=== PATIENT | female | born 1980 | race American Indian/Alaskan Native ===

== ENCOUNTER 2025-03-09 08:48 | Emergency (ER) | payer OTHER, MEDICAID, SELFPAY ==
[2025-03-09] VITALS (9 sets, daily range): BP systolic 114–140; BP diastolic 73–86; PULSE 100–111; RESP 18–25; TEMP 36.9–37.9; O2SAT 93–98; BMI 36.6
--- NOTE | 2025-03-09 09:18 | PD.EDLOWEX ---
Lower Extremity Injury RME/HPI General Chief Complaint: General Adult/Misc Complain Stated Complaint: ALL JOINTS HURT X 2 WKS Time Seen by Provider: 03/09/25 09:05 Source: patient Arrival date/time: 03/09/25 08:48 45-year-old female with a history of hypertension, type 2 diabetes presents to the emergency room with a chief complaint of joint pain x 2 weeks. Patient states her right foot, right knee left knee and left elbow are all hurting her. Patient denies any trauma. Mode of arrival: ambulatory Limitations: no limitations Related Data Home Medications ?Medication ?Instructions ?Recorded ?Confirmed amlodipine 2.5 mg tablet 2.5 mg PO QDAY 02/14/22 02/27/22 metformin 500 mg tablet 500 mg PO BIDWM 02/14/22 02/27/22 apixaban 2.5 mg tablet (Eliquis) 2.5 mg PO BID 02/27/22 02/27/22 hydrocodone 7.5 mg-acetaminophen 1 tab PO Q6HR PRN Pain 02/27/22 02/27/22 325 mg tablet Previous Rx's ?Medication ?Instructions ?Recorded pantoprazole 40 mg tablet,delayed 40 mg PO QDAY #20 tabs 09/01/21 release Allergies Allergy/AdvReac Type Severity Reaction Status Date / Time No Known Allergies Allergy Verified 03/09/25 08:51 ED Exam General Limitations: Present no limitations Course Orders Category Date Time Status CBC Stat Lab 03/09/25 09:17 Ordered CK [Creatine Kinase] Stat Lab 03/09/25 09:17 Ordered CMP [Comprehensive Metabolic Panel] Stat Lab 03/09/25 09:17 Ordered Uric Acid Stat Lab 03/09/25 09:17 Ordered Ketorolac Inj [Toradol Inj] Med 03/09/25 09:17 Discontinued 30 mg IM X1 ONE Vital Signs Vital signs: Vital Signs Temperature 99.5 F 03/09/25 09:17 Pulse Rate 100 03/09/25 09:17 Respiratory Rate 18 03/09/25 09:17 Blood Pressure 129/83 03/09/25 09:17 Pulse Oximetry (%) 98 03/09/25 09:17 Oxygen Delivery Method Room Air 03/09/25 09:17 Extremity Injury, Lower Medications / Prescriptions Medication administrations:: Medication Administration History Discontinued Medications Ketorolac Tromethamine (Ketorolac Inj 60 Mg/2 Ml Vial) 30 mg IM X1 ONE Stop: 03/09/25 09:18 Discharge Plan Prescriptions/Referrals Prescriptions/Med Rec: No Action pantoprazole 40 mg Tablet,Delayed Release (Dr/Ec) 40 mg PO QDAY Qty: 20 0RF metformin 500 mg tablet 500 mg PO BIDWM Patient Comments: TAKE 1 TABLET BY MOUTH TWICE A DAY WITH MORNING AND EVENING MEALS amlodipine 2.5 mg tablet 2.5 mg PO QDAY Patient Comments: TAKE 1 TABLET BY MOUTH EVERY DAY hydrocodone-acetaminophen 7.5-325 mg tablet 1 tab PO Q6HR PRN (Reason: Pain) Patient Comments: TAKE 1 TABLET BY MOUTH EVERY 6 HOURS FOR 5 DAYS Eliquis 2.5 mg tablet 2.5 mg PO BID Patient Comments: TAKE 1 TABLET BY MOUTH TWICE DAILY FOR 21 DAYS Patient/Caregiver Discharge Instructions Print Language: Nigerian
[2025-03-09] MEDS: KETOROLAC INJ 60 MG/2 ML VIAL 30 MG IM (09:30)
[2025-03-09 10:18] LABS: Basophils # (Auto) 0.1 Thou/mm3 (0.0-0.2); Basophils % (Auto) 1 % (0-2.5); Eosinophils # (Auto) 0.1 Thou/mm3 (0.0-0.5); Eosinophils % (Auto) 0 % (0-10); Hematocrit 39.5 % (36.0-46.0); Hemoglobin 12.8 g/dL (12.0-16.0); Immature Granulocytes Auto 0.16 Thou/mm3 (0.00-0.00); Lymphocytes # (Auto) 1.2 Thou/mm3 (1.0-4.8); Lymphocytes % (Auto) 4 % (10-50); Mean Corpuscular HGB Conc 32.4 g/dl (31.0-37.0); Mean Corpuscular Hemoglobin 30.3 pg (25.0-35.0); Mean Corpuscular Volume 94 fL (80-100); Monocytes # (Auto) 0.9 Thou/mm3 (0.0-0.8); Monocytes % (Auto) 3 % (0-12); Neutrophils # (Auto) 24.8 Thou/mm3 (1.8-7.7); Neutrophils % (Auto) 91 % (37-80); Nucleated Red Blood Cell # 0.00 Thou/mm3 (0.00-0.00); Nucleated Red Blood Cell % 0 /100 WBC (0); Platelet Count 344 Thou/mm3 (140-440); RDW Standard Deviation 47.1 fL (36.4-46.3); Red Blood Count 4.22 Miln/mm3 (4.00-5.20); White Blood Count 27.2 Thou/mm3 (3.6-11.0)
[2025-03-09 10:33] LABS: Alanine Aminotransferase 27 U/L (10-49); Albumin, Serum 4.0 gm/dL (3.5-5.0); Albumin/Globulin Ratio 1.5 (1.2-2.2); Alkaline Phosphatase 178 U/L (46-116); Anion Gap 13 (7-16); Aspartate Amino Transferase 22 U/L (0-34); BUN/Creatinine Ratio 10 Ratio (12-20); Bilirubin,Total 0.5 mg/dL (0.3-1.2); Blood Urea Nitrogen 14 mg/dL (9-23); Calcium 9.1 mg/dL (8.3-10.6); Calcium (Corrected) 9.1 mg/dL (8.5-10.1); Carbon Dioxide 18.3 mMol/L (20.0-31.0); Chloride 101 mMol/L (98-107); Creatine Kinase 124 U/L (34-171); Creatinine (Component) 1.4 mg/dL (0.6-1.3); Estimated Creatinine Clearance 52.0 mL/min (>60); Globulin 2.7 gm/dL (2.3-3.5); Glucose 315 mg/dL (74-106); Osmolality,Calculated 277 (275-295); Potassium 3.9 mMol/L (3.4-5.1); Sodium 132 mMol/L (136-145); Total Protein 6.7 gm/dL (5.7-8.2); eGFR 47 See Note
[2025-03-09 10:42] LABS: Uric Acid 5.8 mg/dL (3.1-7.8)
[2025-03-09 11:08] LABS: Lactate (Lactic Acid) 1.9 mMol/L (0.4-2.0)
--- NOTE | 2025-03-09 11:20 | PD.EDRME ---
Rapid Medical Screening Exam E Arrival date/time: 03/09/25 08:48 45-year-old female with a history of hypertension, type 2 diabetes presents to the emergency room with a chief complaint of joint pain x 2 weeks. Patient states her right foot, right knee left knee and left elbow are all hurting her. Patient has a knee spacer in her left knee. Patient denies any trauma. I have greeted and performed a focused initial assessment of this patient. A comprehensive ED assessment and evaluation of the patient, analysis of all test results, and completion of the medical decision making process will be conducted by additional ED providers. Chief Complaint: General Adult/Misc Complain Time Seen by Provider: 03/09/25 09:05 Vital signs: Vital Signs Temperature 99.5 F 03/09/25 09:17 Pulse Rate 100 03/09/25 09:17 Respiratory Rate 18 03/09/25 09:17 Blood Pressure 129/83 03/09/25 09:17 Pulse Oximetry (%) 98 03/09/25 09:17 Oxygen Delivery Method Room Air 03/09/25 09:17 Vital signs reviewed by provider: Yes
[2025-03-09] MEDS: SODIUM CHLORIDE 0.9% 1000 ML 1,000 ML 999 ML IV (11:31)
[2025-03-09] MEDS: ceFAZolin/D5W 1 GM IVPB 1 GM/50 ML BAG IV (11:32)
[2025-03-09 11:40] LABS: C-Reactive Protein 4.8 mg/dL (0.0-0.9); Procalcitonin 0.22 ng/ml (0.0-0.49)
[2025-03-09 11:55] LABS: Sed Rate (ESR) 55 mm/hr (0-20)
[2025-03-09] MEDS: ONDANSETRON INJ 2 MG/ML INJ 2 ML 4 MG IVP ×2 (12:04→17:05)
[2025-03-09] MEDS: MORPHINE SULF INJ 10 MG/ML VIAL 4 MG IVP ×2 (12:04→17:05)
--- NOTE | 2025-03-09 12:07 | XR_ITS ---
Examination: Knee, right , 3 views Technique: Knee AP, lateral, oblique 3 views Date and time of exam: May 09, 2025 1219 hours INDICATIONS: Joint pain 2 weeks. FINDINGS: Severe osteopenia. Right knee arthroplasty. The patient's prosthetic tibial plateau component has again been removed No fracture IMPRESSION: Stable alignment compared with March 12, 2022 No fracture
--- NOTE | 2025-03-09 12:08 | XR_ITS ---
Examination: Duplex scan of the lower extremity, unilateral right complete Date and time of exam: March 09, 2025 1316 hours INDICATIONS: Right leg swelling and pain beginning today Technique: Duplex scan of the extremity veins using B-mode/grayscale imaging and Doppler spectral analysis and color flow Attention is directed to internal echogenicity, compression and augmentation involving these veins, color flow assessment, spectral analysis Findings: Major deep venous structures in the extremity demonstrate normal course and caliber. There is no evidence of deep vein thrombosis. Normal color flow and spectral analysis Impression: Negative for DVT..
--- NOTE | 2025-03-09 12:29 | EDNOTE_ITS ---
ED Fever RME/HPI General Chief Complaint: General Adult/Misc Complain Stated Complaint: ALL JOINTS HURT X 2 WKS Time Seen by Provider: 03/09/25 09:05 Arrival date/time: 03/09/25 08:48 Limitations: no limitations RME / HPI RME / HPI Narrative: 03/09/25 08:48 45-year-old female with a history of hypertension, type 2 diabetes presents to the emergency room with a chief complaint of mylagias and right knee pain/swe lling that started at 23:30 last night. Rightknee was surgically replaced by Dr. Marc from [facility] at [place], [place] on October 2020. She states she has had infections in that knee since. Related Data Home Medications ?Medication ?Instructions ?Recorded ?Confirmed amlodipine 2.5 mg tablet 2.5 mg PO QDAY 02/14/2202/13 metformin 500 mg tablet 500 mg PO BIDWM 02/14/22 apixaban 2.5 mg tablet (Eliquis) 2.5 mg PO BID 2 02/27/22 hydrocodone 7.5 mg-acetaminophen 1 tab PO Q6HR PRN Fatmata n 02/27/22 02/27/22 325 mg tablet Previous Rx's ?Medication ?Instructions ?Recorded pantoprazole 40 mg tablet,delayed 40 mg PO QDAY #20 ta bs 09/01/21 release Allergies Allergy/AdvReac Type Severity Reaction Status Date / Time No Known Allergies Allergy Verified 03/09/25 08:51 Physical Exam General Limitations: no limitations General appearance: alert and in distress Head Head exam: atraumatic Eye Eye exam: Present normal appearance, PERRL and EOMI ENT ENT exam: Present normal exam, normal oropharynx and mucous membranes moist Neck Neck exam: Present normal inspection, full ROM and trachea midline Chest Chest inspection: Present normal inspection and symmetric chest wall rise Respiratory Respiratory exam: Present normal lung sounds bilaterally Cardiovascular Cardiovascular exam: Present regular rate, normal rhythm and tachycardia Abdominal Exam Abdominal exam: Present soft and normal bowel sounds Extremities Exam Extremities exam: Present tenderness, joint swelling and other (The right knee is diffusely erythematous, warm to touch, and mildly edematous. There is no blotting of the knee. There is mild crepitus present. Patient has pain with passive range of motion. She is guarding her knee.) Back Exam Back exam: Present normal inspection and full ROM Neurological Exam Neurological exam: Present alert and oriented X3 Psychiatric Psychiatric exam: Present normal affect Skin Skin exam: Present warm and other (Right knee is erythematous and warm, primarily along the anterior surface. No open wounds or fluctuance.) ED Exam General Limitations: Present no limitations General appearance: Present alert and in distress Head Head exam: Present atraumatic Eye Eye exam: Present normal appearance, PERRL and EOMI ENT ENT exam: Present normal exam, normal oropharynx and mucous membranes moist Neck Neck exam: Present normal inspection, full ROM and trachea midline Chest Chest inspection: Present normal inspection and symmetric chest wall rise Respiratory Respiratory exam: Present normal lung sounds bilaterally Cardiovascular Cardiovascular exam: Present regular rate, normal rhythm and tachycardia Abdominal Exam Abdominal exam: Present soft and normal bowel sounds Extremities Exam Extremities exam: Present tenderness, joint swelling and other (The right knee is diffusely erythematous, warm to touch, and mildly edematous. There is no blotting of the knee. There is mild crepitus present. Patient has pain with pa ssive range of motion. She is guarding her knee.) Back Exam Back exam: Present normal inspection and full ROM Neurological Exam Neurological exam: Present alert and oriented X3 Psychiatric Psychiatric exam: Present normal affect Skin Skin exam: Present warm and other (Right knee is erythematous and warm, primarily along the anterior surface. No open wounds or fluctuance.) Course Quality Measures none Orders Category Date Time Status Bedside COVID-19 Antigen Test NOW Care 03/09/25 12:12 Active Bedside Influenza A&B Antigen Test NOW Care 03/09/25 12:13 Completed Consult to Orthopedic Stat Cons 03/09/25 14:03 Ordered Referral - Shrink Pit Operator Stat Cons 03/09/25 12:53 Active Referral - Shrink Pit Operator Stat Cons 03/09/25 14:40 Active Transfer to another facility [Transfer/Discharge] Stat Discharge 03/09/25 12:36 Active US venous doppler LE RT Stat Exams 03/09/25 12:08 Completed XR knee RT 3V Stat Exams 03/09/25 12:07 Completed Blood Culture (Lab) Stat Lab 03/09/25 10:45 Received Body Fld Culture & Gram Stain Stat Lab 03/09/25 23:00 Ordered CBC Stat Lab 03/09/25 09:31 Completed CK [Creatine Kinase] Stat Lab 03/09/25 09:31 Completed CMP [Comprehensive Metabolic Panel] Stat Lab 03/09/25 09:31 Completed CRP [C-Reactive Protein] Stat Lab 03/09/25 10:48 Completed Cell Count w Diff, CSF Stat Lab 03/09/25 23:00 Ordered Drug Screen,Urine Stat Lab 03/09/25 17:00 Completed ESR [Sed Rate (ESR)] Stat Lab 03/09/25 10:48 Completed Lactate (Lactic Acid) Stat Lab 03/09/25 10:48 Completed Procalcitonin Stat Lab 03/09/25 10:48 Completed Synovial Fluid, Crystals* Stat Lab 03/09/25 23:00 Ordered UA [Urinalysis] Stat Lab 03/09/25 17:00 Completed Uric Acid Stat Lab 03/09/25 09:31 Completed Urine Culture Stat Lab 03/09/25 16:52 Received Acetaminophen Tab [Tylenol ES Tab] Med 03/09/25 12:09 Discontinued 1,000 mg PO X1 ONE Colchicine Med 03/09/25 09:20 Discontinued 1.2 mg PO X1 ONE Ketorolac Inj [Toradol Inj] Med 03/09/25 09:17 Discontinued 30 mg IM X1 ONE Lidocaine 1% 20 ml [Xylocaine 1% 20 ML] Med 03/09/25 13:00 Discontinued 20 ml INFL X1 ONE Morphine Inj Med 03/09/25 22:37 Active 2 mg IVP Q1H PRN Morphine Inj Med 03/09/25 11:51 Discontinued 4 mg IVP X1 ONE Morphine Inj Med 03/09/25 16:52 Discontinued 4 mg IVP X1 ONE Ondansetron Inj [Zofran Inj] Med 03/09/25 11:51 Discontinued 4 mg IVP X1 ONE Ondansetron Inj [Zofran Inj] Med 03/09/25 16:52 Discontinued 4 mg IVP X1 ONE Ringers Lactated 500 ml [Lactated Ringers] 500 ml Med 03/09/25 12:03 Discontinued IV 750 mls/hr Sodium Chloride 0.9% 1000 ml [Ns] 1,000 ml Med 03/09/25 10:34 Discontinued IV 999 mls/hr Sodium Chloride 0.9% 1000 ml [Ns] 1,000 ml Med 03/09/25 12:03 Discontinued IV 999 mls/hr Sodium Chloride 0.9% 1000 ml [Ns] 2,722 ml Med 03/09/25 12:03 Discontinued IV 2,722 mls/hr Vancomycin Inj 1,000 mg Med 03/09/25 12:04 Discontinued Sodium Chloride 0.9% 250 ml [Ns] 250 ml IV X1 ceFAZolin/D5W 1 GM IVPB [Ancef Ivpb] Med 03/09/25 22:00 Active 1 gm in 50 ml IV Q8HR ceFAZolin/D5W 1 GM IVPB [Ancef Ivpb] Med 03/09/25 10:35 Discontinued 1 gm in 50 ml IV X1 Vital Signs Vital signs: Vital Signs Temperature 99.5 F 03/09/25 09:17 Pulse Rate 100 03/09/25 09:17 Respiratory Rate 18 03/09/25 09:17 Blood Pressure 129/83 03/09/25 09:17 Pulse Oximetry (%) 98 03/09/25 09:17 Oxygen Delivery Method Room Air 03/09/25 09:17 Fever MDM Narrative MDM Narrative:: 03/09/25 08:48 45-year-old female with a history of hypertension, type 2 diabetes presents to the emergency room with a chief complaint of mylagias and right knee pain/swelling that started at 23:30 last night. Right knee was surgically replaced by Dr. Marc from [facility] at [place], [place] on October 2020. She states she has had infections in that knee since. Review of past notes reveal that patient has been in our ER for this in the past. She has left AGAINST MEDICAL ADVICE due to challenges in transferring her to an appropriate facility. She has had her septic knee surgical. Also treated at [facility] and [facility] in [place], [place]. She has had prior PICC lines and was treated with Ancef this last occurred in 2021. [facility] [place], [place] and [facility] were unable to except the patient for transfer. Case discussed with nightshift attending ER physician, Dr. Roblero who accepts the patient at shift change. Patient data External records reviewed:: [facility] previous records Clinical information provided by:: patient Social determinants that could affect healthcare access:: substance use Patient has the following chronic illnesses:: n/a How is presenting disease/condition affected by chronic disease/condition?: no chronic disease Evaluation data The following diagnostics were reviewed and interpreted by me:: lab results and radiology exam(s) Lab and/or radiology exams considered but not ordered:: N/A Interpretation Summary: Sepsis, septic joint, methamphetamine abuse Medications / Prescriptions Medications or Prescriptions considered but not ordered:: N/A Medication administrations:: Medication Administration History Cefazolin Sodium/Dextrose (Ancef Ivpb) 1 gm in 50 mls @ 100 mls/hr IV Q8HR PATTI Stop: 03/16/25 21:59 Morphine Sulfate (Morphine Sulf Inj 10 Mg/Ml Vial) 2 mg IVP Q1H PRN PRN Reason: PAIN Discontinued Medications Acetaminophen (Acetaminophen 500 Mg Tablet) 1,000 mg PO X1 ONE Stop: 03/09/25 12:10 Last Admin: 03/09/25 12:40 Dose: 1,000 mg Documented By: ARF Colchicine (Colchicine 0.6 Mg Tablet) 1.2 mg PO X1 ONE Stop: 03/09/25 09:21 Last Admin: 03/09/25 11:14 Dose: Not Given Documented By: ARF Non-Admin Reason: Discontinued Sodium Chloride (Ns) 1,000 mls @ 999 mls/hr IV .Q1H1M ONE Stop: 03/09/25 11:34 Last Infusion: 03/09/25 12:15 Dose: Infused Documented By: Admin: 03/09/25 11:31 Dose: 999 mls/hr Documented By: ARF Cefazolin Sodium/Dextrose (Ancef Ivpb) 1 gm in 50 mls @ 100 mls/hr IV X1 ONE Stop: 03/09/25 11:04 Last Infusion: 03/09/25 12:14 Dose: Infused Documented By: Admin: 03/09/25 11:32 Dose: 100 mls/hr Documented By: ARF Sodium Chloride (Ns) 2,722 mls @ 2,722 mls/hr 30 ml/kg infuse over 60 min (2722 ml) IV .Q1H ONE; Protocol Stop: 03/09/25 13:02 Last Infusion: 03/09/25 14:06 Dose: Infused Documented By: Admin: 03/09/25 12:43 Dose: 2,722 mls/hr Documented By: ARF Sodium Chloride (Ns) 1,000 mls @ 999 mls/hr IV .Q1H1M ONE Stop: 03/09/25 13:03 Last Admin: 03/09/25 12:46 Dose: Not Given Documented By: ARF Non-Admin Reason: Discontinued Lactated Ringer's (Lactated Ringers) 500 mls @ 750 mls/hr IV .Q40M ONE Stop: 03/09/25 12:42 Last Admin: 03/09/25 12:46 Dose: Not Given Documented By: ARF Non-Admin Reason: Discontinued Vancomycin HCl 1,000 mg/ (Sodium Chloride) 250 mls @ 150 mls/hr IV X1 ONE Stop: 03/09/25 13:43 Last Infusion: 03/09/25 14:07 Dose: Infused Documented By: Admin: 03/09/25 12:41 Dose: 150 mls/hr Documented By: ARF Ketorolac Tromethamine (Ketorolac Inj 60 Mg/2 Ml Vial) 30 mg IM X1 ONE Stop: 03/09/25 09:18 Last Admin: 03/09/25 09:30 Dose: 30 mg Documented By: CN Lidocaine HCl (Lidocaine Hcl 1% 20 Ml Vial) 20 ml INFL X1 ONE Stop: 03/09/25 13:01 Last Admin: 03/09/25 15:25 Dose: Not Given Documented By: ARF Non-Admin Reason: Discontinued Morphine Sulfate (Morphine Sulf Inj 10 Mg/Ml Vial) 4 mg IVP X1 ONE Stop: 03/09/25 11:52 Last Admin: 03/09/25 12:04 Dose: 4 mg Documented By: ARF Morphine Sulfate (Morphine Sulf Inj 10 Mg/Ml Vial) 4 mg IVP X1 ONE Stop: 03/09/25 16:53 Last Admin: 03/09/25 17:05 Dose: 4 mg Documented By: ARF Ondansetron HCl (Ondansetron Inj 2 Mg/Ml Inj 2 Ml) 4 mg IVP X1 ONE; Protocol Stop: 03/09/25 11:52 Last Admin: 03/09/25 12:04 Dose: 4 mg Documented By: ARF Ondansetron HCl (Ondansetron Inj 2 Mg/Ml Inj 2 Ml) 4 mg IVP X1 ONE; Protocol Stop: 03/09/25 16:53 Last Admin: 03/09/25 17:05 Dose: 4 mg Documented By: ARF see above Consultations Consultation(s) initiated? (list below): Yes Diagnosis Fever Differential Diagnosis: cellulitis, fever of unknown origin and sepsis Most likely diagnosis given after review of the tests above:: Septic knee Admission Indicated Admission indicated?: indicated Admission Request Was there a request for admission?: Yes Admission Attestation Admission request attestation: Discussed case with [] from Hospitalist service regarding admission. Discussed patients ED course, exam findings, labs, and radiology results. The Hospitalist [agrees,declines] to accept the patient for admission. Disposition Plan Disposition Plan: Transfer Discharge Plan Prescriptions/Referrals Prescriptions/Med Rec: No Action pantoprazole 40 mg Tablet,Delayed Release (Dr/Ec) 40 mg PO QDAY Qty: 20 0RF metformin 500 mg tablet 500 mg PO BIDWM Patient Comments: TAKE 1 TABLET BY MOUTH TWICE A DAY WITH MORNING AND EVENING MEALS amlodipine 2.5 mg tablet 2.5 mg PO QDAY Patient Comments: TAKE 1 TABLET BY MOUTH EVERY DAY hydrocodone-acetaminophen 7.5-325 mg tablet 1 tab PO Q6HR PRN (Reason: Pain) Patient Comments: TAKE 1 TABLET BY MOUTH EVERY 6 HOURS FOR 5 DAYS Eliquis 2.5 mg tablet 2.5 mg PO BID Patient Comments: TAKE 1 TABLET BY MOUTH TWICE DAILY FOR 21 DAYS Referrals: Enoc Armstrong PA-C [Primary Care Provider] - In 1 week Problem List Clinical Impression: Septic joint of right knee joint, Sepsis, Methamphetamine abuse Patient/Caregiver Discharge Instructions Print Language: Argentine
[2025-03-09] MEDS: ACETAMINOPHEN 500 MG TABLET 1000 MG PO (12:40)
[2025-03-09] MEDS: Vancomycin Inj 1,000 MG in SODIUM CHLORIDE 0.9% 250 ML 250 ML 150 MG IV (12:41)
[2025-03-09] MEDS: SODIUM CHLORIDE 0.9% 2722 ML IV (12:43)
--- NOTE | 2025-03-09 14:57 | PC.CC ---
Addendum entered by Debbie Cortez RN 03/09/25 19:27: 1856: Gwendolyn w/ [facility] called, spoke to Adrian. transfer packet w/ CD taken to ED records management manager Lydia. Hand off given Addendum entered by Debbie Cortez RN 03/09/25 17:53: 1746: Karlene called back and she stated, oncall ortho is unable to provide the service the pt requires and rec pt f/u with [facility]. 1737: Spoke to Greetl at [facility], she stated ortho is still reviewing the case. She will call back with a redetermination. 1721: received call from Karlene schroeder/ [facility], she stated her ortho oncall reviewed the case and pt does not seem systemically septic and can f/u with [facility] as an outpatient. Informed Adrian, he stated pt is septic. I called Courtney back to inform her that provider would like to proceed with ED to ED transfer. Courtney stated she will reach out her provider again. Addendum entered by Debbie Cortez RN 03/09/25 16:41: faxed lab results as requested from Karlene at [facility]. She is still waiting for response from billie clarke Addendum entered by Debbie Cortez RN 03/09/25 16:22: 1615: Called [facility]. no longer works at their facility. Addendum entered by Debbie Cortez RN 03/09/25 16:11: 1610: sent clinicals to [facility]. 1602: Karlene schroeder/ [facility] called back and stated Dr Marc is not oncall today and to call him at his office. I asked if the ortho MD clarke can review the case. She stated she will reach out. 1548: Jade schroeder/ [facility] called back, stated Dr. Marc does not work at [facility]. Billie clarke doesn't do revisions. Addendum entered by Debbie Cortez RN 03/09/25 15:36: 1518: spoke to Courtney at [facility], she stated she will wait for the clinicals, review, and call me back Addendum entered by Debbie Cortez RN 03/09/25 15:10: 1506: sent clinicals to [facility]. 1500: sent clinicals to [facility], transfer request initiated. Jade stated patient is in their system and in [facility] as well. She will wait for the clinicals, review and call me back. 1440 received new transfer request for ortho for [facility] since that is where she had it done. Addendum entered by Debbie Cortez RN 03/09/25 15:08: 1343: received call from Gillian CHRISTIE, Dr. Quinones will review and to hold transfer request for now. Original Note: 1300: received transfer request for ortho for septic knee. PA had not reached out to Dr. Quinones who is the ortho oncall. Asked the ED charge nurse Gillian to the PA reach out the Dr. Quinones.
[2025-03-09 17:31] LABS: Collection Type, Urine Clean Catch
[2025-03-09 17:50] LABS: Bilirubin,Urine Negative (Negative); Blood,Urine Trace (Negative); Clarity,Urine Clear (Clear/Hazy); Color,Urine Lt-Yellow (Lt Yel-Yel); Glucose, Urine 4+ (Negative); Ketones,Urine Negative (Negative); Leukocyte Esterase,Urine Negative (Negative); Nitrite,Urine Negative (Negative); PH,Urine 6.0 (5.0-7.0); Protein,Urine Negative (Neg - Trace); RBC,Urine 3 /hpf (0-3); Specific Gravity,Urine 1.015 (1.001-1.035); Squamous Epithelial Cell,Urine 2 /hpf (0-5); Urobilinogen,Urine Negative mg/dL (0.0-1.0); WBC,Urine < 1 /hpf (0-5)
[2025-03-09 17:55] LABS: Amphetamine/Methamp Scrn,U Positive (Negative); Barbiturate Screen,Urine Negative (Negative); Benzodiazepines Screen,Urine Negative (Negative); Benzoylecgonine Screen, Ur Negative (Negative); Fentanyl Screen,Urine Negative (Negative); Opiate Screen,Urine Positive (Negative); THC Screen,Urine Negative (Negative)
--- NOTE | 2025-03-09 20:39 | PC.NURSE ---
Varun hernandez suggested we try [facility], packet faxed over-will follow up.
--- NOTE | 2025-03-09 21:09 | PC.NURSE ---
[facility] spoke to Beverly regarding packet she states [place] is requesting only emergencies, she suggested Mathew or Katheryn. CAYDEN Gutierrez speaking with transfer center at this time.
--- NOTE | 2025-03-09 21:27 | PC.NURSE ---
Ericka have declined due to not being able to do revisions.
--- NOTE | 2025-03-09 23:00 | PD.EDADDENDU ---
Emergency Room Addendum Addendum Narrative: 2300: Care assumed from Adrian Coats PA-C. Past medical, surgical, social and family history reviewed. Vitals and home medications reviewed. Results and treatment plan discussed. I will assume the care of the patient at this time and will follow the patient, pending transfer. Please refer to the emergency department record for history and examination from initial visit. Patient evaluated now for the 3rd episode of septic arthritis having received empiric antibiotics on previous culture results. No signs of sepsis at this time. Will attempt to transfer patient for orthopedic evaluation. 0600: Care signed out to Dr. Nguyen (emergency physician). Past medical, surgical, social and family history reviewed. Vitals and home medications reviewed. Results and treatment plan discussed. They will assume the care of the patient at this time and will follow the patient, pending orthopedic transfer.
[2025-03-09] MEDS: MORPHINE SULF INJ 10 MG/ML VIAL 2 MG IVP (23:14)
[2025-03-10] MEDS: ceFAZolin/D5W 1 GM IVPB 1 GM/50 ML BAG IV ×3 (00:40→21:34)
[2025-03-10 03:03] VITALS: BP 122/72; PULSE 102; RESP 20; TEMP 37.3; O2SAT 95
[2025-03-10] MEDS: MORPHINE SULF INJ 10 MG/ML VIAL 2 MG IVP ×2 (04:42→08:45)
--- NOTE | 2025-03-10 07:29 | EDNOTE_ITS ---
Emergency Room Addendum <Cyn Urrutia - Last Filed: 03/10/25 18:01> Addendum Narrative: 0600: Care assumed from Dr. Azevedo, the previous shift emergency physician. Past medical, surgical, social and family history reviewed. Vitals and home medications reviewed. I will assume the care of the patient at this time, pending transfer for orthopedic services. Please refer to the emergency department record for history and examination from initial visit.?The following addendum documentation note is intended to reflect any pending information, findings, or radiology results not included in the patient?s initial chart. Patient is a 45-year-old female is in the emergency department concerns for right knee swelling and pain that started yesterday. Patient has a history of prior knee replacement that [facility] orthopedics. Complicated by prior joint infections. Prior providers evaluated patient ordered labs and x-ray of the knee. Also consulted orthopedic surgeon. Labs with evidence of leukocytosis 27.2, left shift of 91%. Hemoglobin is 12.8. Patient bicarb is 18.3, sodium 132 creatinine 1.4 at her baseline. Lactic acid normal. No significant transaminitis, CRP elevated. Urinalysis without evidence of infection however she is positive for opiates and methamphetamines. Lower extremity Doppler unremarkable. X-ray does not show evidence of fracture or dislocation. Multiple pathologies were contacted for transfer however given patient has infected hardware patient had been declined. Recommended that we transfer to a facility that has capabilities to do Ortho revision. On my assessment patient hemodynamically stable and not in distress. Right knee is swollen, warm, tender to palpation. Neurovascularly intact. Patient states that all of her surgeries have been performed formed at [facility]. States that her original knee replacement was in 2019 that in 2020 she says that some of the hardware was replaced and the spacer was placed instead. Has not had any other surgeries. Per transfer center, multiple attempts have been placed to try to locate patient's original orthopedic surgeon however unable to locate the surgeon. No longer works with [facility] nurse and Shyanne. Other facilities are requesting orthopedic surgeons with higher level capabilities. 0820: I spoke with transfer center at [place], will see if facility has capacity. 12:04p discussed case with Dr. Henderson at [facility], will discuss with the team. 1600: Had a long discussion with Dr. Henderson at [facility]. Recommended that we contact [facility] again adding the procedure she needs is not complex. The patient requires an I&D, washout, and antibiotic spacer. Since [facility] performed the initial surgery, it is advised to follow up with them. It was also noted that if the patient were to go to [facility], she would likely require two or more procedures. Given her limited access to transportation, receiving care closer to home would be in her best interest. 1800: Patient signed out to Dr. Azevedo pending contact with [facility] and transfer. <Jade Nguyen MD - Last Filed: 04/02/25 16:56> Addendum Narrative: 0600: Care assumed from Dr. Azevedo, the previous shift emergency physician. Past medical, surgical, social and family history reviewed. Vitals and home medications reviewed. I will assume the care of the patient at this time, pending transfer for orthopedic services. Please refer to the emergency department record for history and examination from initial visit.?The following addendum documentation note is intended to reflect any pending information, findings, or radiology results not included in the patient?s initial chart. Patient is a 45-year-old female is in the emergency department concerns for right knee swelling and pain that started yesterday. Patient has a history of prior knee replacement that [facility] orthopedics. Complicated by prior joint infections. Prior providers evaluated patient ordered labs and x-ray of the knee. Also consulted orthopedic surgeon. Labs with evidence of leukocytosis 27.2, left shift of 91%. Hemoglobin is 12.8. Patient bicarb is 18.3, sodium 132 creatinine 1.4 at her baseline. Lactic acid normal. No significant transaminitis, CRP elevated. Urinalysis without evidence of infection however she is positive for opiates and methamphetamines. Lower extremity Doppler unremarkable. X-ray does not show evidence of fracture or dislocation. Multiple pathologies were contacted for transfer however given patient has infected hardware patient had been declined. Recommended that we transfer to a facility that has capabilities to do Ortho revision. On my assessment patient hemodynamically stable and not in distress. Right knee is swollen, warm, tender to palpation. Neurovascularly intact. Patient states that all of her surgeries have been performed formed at [facility]. States that her original knee replacement was in 2020 that in 2020 she says that some of the hardware was replaced and the spacer was placed instead. Has not had any other surgeries. Per transfer center, multiple attempts have been placed to try to locate patient's original orthopedic surgeon however unable to locate the surgeon. No longer works with [facility] nurse and Shyanne. Other facilities are requesting orthopedic surgeons with higher level capabilities. 0820: I spoke with transfer center at [place], will see if facility has capacity. 12:04p discussed case with Dr. Henderson at [facility], will discuss with the team. 1600: Had a long discussion with Dr. Henderson at [facility]. Recommended that we contact [facility] again adding the procedure she needs is not complex. The patient requires an I&D, washout, and antibiotic spacer. Since [facility] performed the initial surgery, it is advised to follow up with them. It was also noted that if the patient were to go to [facility], she would likely require two or more procedures. Given her limited access to transportation, receiving care closer to home would be in her best interest per [facility]. 1800: Patient signed out to Dr. Azevedo pending contact with [facility] and transfer. Critical Care Time <Cyndinorah Urrutia - Last Filed: 03/10/25 18:01> Critical Care Time Critical Care Time: Yes Total Critical Care Time (min.): 120 Attestation: The high probability of sudden, clinically significant deterioration in the patient's condition required the highest level of my preparedness to intervene urgently. The services I provided to this patient were to treat and/or prevent clinically significant deterioration. Services included the following: chart data review, reviewing nursing notes and/or old charts, documentation time, telecommunications consultant collaboration regarding findings and treatment options, medication orders and management, direct patient care, vital sign assessments and ordering, interpreting and reviewing diagnostic studies and lab tests. Aggregate critical care time includes only time during which I was engaged in work directly related to the patient's care, as described above, whether at bedside or elsewhere in the Emergency Department. It did not include time spent performing other reported procedures or the services of residents, students, nurses or physician assistants.
--- NOTE | 2025-03-10 08:08 | PC.CC ---
Addendum entered by Debbie Cortez RN 03/10/25 16:21: 1616: spoke to Dr. Nguyen, provided the information below. Directed to keep searching. 1615: [facility]ence w/ [facility] TC stated Dr. Houser declined patient and recommends local outpt f/u. Addendum entered by Debbie Cortez RN 03/10/25 12:08: [facility] and will call back with a determination Addendum entered by Debbie Cortez RN 03/10/25 12:01: peer to peer between Dr Nguyen and Dr Houser w/ [facility] Addendum entered by Debbie Cortez RN 03/10/25 09:43: transfer request initiated with [facility] TC. Eason to send Lola link Addendum entered by Debbie Cortez RN 03/10/25 09:10: clinicals sent to [facility] Addendum entered by Debbie Cortez RN 03/10/25 09:08: angel called back. pt declined at this time d/t ortho capacity. Original Note: clinicals sent to [facility]. transfer request initiated with Angel in the TC
[2025-03-10 08:13] VITALS: BP 147/101; PULSE 96; RESP 18; TEMP 37; O2SAT 95
--- NOTE | 2025-03-10 10:22 | XR_ITS ---
Examination: CT right knee with intravenous contrast, 2-D sagittal reconstructions. 2-D coronal reconstructions. 3-D reconstructions. Date and time of exam: March 10, 2025, 1439 hrs. Indications: Right knee swelling and pain beginning today CTDI: vol (mGy):9.27 DLP: (mGycm):252 Technique: Multiple 1.25 mm axial sections of the right knee post intravenous administration 30 cc Isovue-300 have been obtained. 2-D sagittal and coronal reconstructions have been obtained. 3-D reconstructions have been obtained. Low dose protocols were performed. One or more of the following dose reduction techniques were used; automated exposure control, adjustment of the mA and/or KV according to patient size, use of iterative reconstruction technique. Findings: Distal femur intact Severe osteopenia Total right knee arthroplasty with adequate alignment No fracture Complex significant knee effusion No anthony cortical bone destruction No soft tissue abscess Impression: Right knee arthroplasty with satisfactory alignment Complex significant knee effusion, consider fluoroscopically guided aspiration of this effusion to exclude septic joint
[2025-03-10] MEDS: PIPER/TAZO INJ 4.5 GM in SODIUM CHLORIDE 0.9% (POP) 100 ML IV (11:35)
[2025-03-10] MEDS: ACETAMINOPHEN 500 MG TABLET 1000 MG PO (12:28)
[2025-03-10 14:00] VITALS: BP 124/85; PULSE 98; RESP 18; TEMP 36.8; O2SAT 94
[2025-03-10] MEDS: VANCOMYCIN/D5W 1,250 MG IVPB 250 ML 120 MG IV (14:01)
--- NOTE | 2025-03-10 14:30 | PC.NURSE ---
PT TAKEN TO CT.
--- NOTE | 2025-03-10 18:20 | PD.EDADDENDU ---
Emergency Room Addendum Addendum Narrative: 1800: Care assumed from Dr. Nguyen, the previous shift emergency physician. Past medical, surgical, social and family history reviewed. Vitals and home medications reviewed. Results and treatment plan discussed. I will assume the care of the patient at this time and will follow the patient, pending transfer. Please refer to the emergency department record for history and examination from initial visit. Patient with evidence of septic arthritis awaiting transfer, rejected by [facility] earlier today, requiring intermittent doses on narcotic analgesics and [id number] antibiotics. Will require further effort to transfer for definitive care. 0600: Care signed out to Dr. Nguyen (emergency physician). Past medical, surgical, social and family history reviewed. Vitals and home medications reviewed. Results and treatment plan discussed. They will assume the care of the patient at this time and will follow the patient, pending transfer.
[2025-03-10 19:40] VITALS: BP 136/93; PULSE 97; RESP 19; TEMP 37.2; O2SAT 94
--- NOTE | 2025-03-10 19:50 | PC.NURSE ---
c/o pain and wanting food, iv removed from R ac-redness with swelling, vancomycin infusing leaking, infused remainder to left forearm iv
--- NOTE | 2025-03-10 20:01 | PC.NURSE ---
Notified Dr. Lucie Torres- new order for morpine 4mg IV push times one TORB, and okay to eat
[2025-03-10] MEDS: MORPHINE SULF INJ 10 MG/ML VIAL 4 MG IVP (21:31)
[2025-03-10 23:00] VITALS: BP 120/74; PULSE 111; RESP 19; TEMP 37.2; O2SAT 94
[2025-03-11] VITALS (15 sets, daily range): BP systolic 114–165; BP diastolic 63–112; PULSE 87–112; RESP 16–24; TEMP 36.9–37.6; O2SAT 94–96
--- NOTE | 2025-03-11 | XR_ITS ---
Exam: Fluoroscopic guided right knee aspiration. INDICATION: Right knee joint effusion seen on CT scan earlier today. Fluoroscopy time: 0.6 minutes Dose: 2.2 mGy PROCEDURE: After discussion of risks and benefits informed consent was obtained. Patient brought to the angiography suite and placed supine on the exam table. Area overlying the right knee joint was cleaned and draped in normal sterile surgical fashion. 15 cc 1% lidocaine was used for local anesthesia. Using fluoroscopic guidance a 21-gauge needle was sequentially advanced through the right knee joint from a lateral approach. Approximately 10 cc of cloudy yellow fluid was aspirated. Flow ceased through the needle. The needle was withdrawn. Hemostasis was achieved. The access site was covered with sterile dressing were no immediate complications. IMPRESSION: Successful fluoroscopic guided right knee joint aspiration as above. 10 cc cloudy yellow fluid obtained and sent to lab for analysis.
--- NOTE | 2025-03-11 04:38 | PC.NURSE ---
Addendum entered by Patricia Watson RN 03/11/25 05:12: correction indigestion vs indegestion Original Note: Pt c/o pain to affected extremity 04/24 and indegestion-notified Dr. Henderson-new order for morphine IVP 4mg times 1 and maalox-see mar
[2025-03-11] MEDS: MG HYD/AL HYD/SIME (Maalox Reg) SUSP 30 ML UDC PO (04:46)
[2025-03-11] MEDS: MORPHINE SULF INJ 10 MG/ML VIAL 4 MG IVP ×3 (04:46→16:47)
--- NOTE | 2025-03-11 05:00 | PC.NURSE ---
Addendum entered by Patricia Watson RN 03/11/25 05:12: pt denies any pain or discomfort to right ac Original Note: right ac area with blanchable redness and slight swelling
[2025-03-11] MEDS: ceFAZolin/D5W 1 GM IVPB 1 GM/50 ML BAG IV ×3 (05:30→22:06)
[2025-03-11 05:48] LABS: Basophils # (Auto) 0.1 Thou/mm3 (0.0-0.2); Basophils % (Auto) 0 % (0-2.5); Eosinophils # (Auto) 0.1 Thou/mm3 (0.0-0.5); Eosinophils % (Auto) 1 % (0-10); Hematocrit 36.5 % (36.0-46.0); Hemoglobin 12.0 g/dL (12.0-16.0); Immature Granulocytes Auto 0.09 Thou/mm3 (0.00-0.00); Lymphocytes # (Auto) 1.7 Thou/mm3 (1.0-4.8); Lymphocytes % (Auto) 11 % (10-50); Mean Corpuscular HGB Conc 32.9 g/dl (31.0-37.0); Mean Corpuscular Hemoglobin 31.3 pg (25.0-35.0); Mean Corpuscular Volume 95 fL (80-100); Monocytes # (Auto) 1.0 Thou/mm3 (0.0-0.8); Monocytes % (Auto) 7 % (0-12); Neutrophils # (Auto) 12.8 Thou/mm3 (1.8-7.7); Neutrophils % (Auto) 81 % (37-80); Nucleated Red Blood Cell # 0.00 Thou/mm3 (0.00-0.00); Nucleated Red Blood Cell % 0 /100 WBC (0); Platelet Count 292 Thou/mm3 (140-440); RDW Standard Deviation 49.2 fL (36.4-46.3); Red Blood Count 3.83 Miln/mm3 (4.00-5.20); White Blood Count 15.7 Thou/mm3 (3.6-11.0)
[2025-03-11 06:23] LABS: Alanine Aminotransferase 86 U/L (10-49); Albumin, Serum 3.7 gm/dL (3.5-5.0); Albumin/Globulin Ratio 1.4 (1.2-2.2); Alkaline Phosphatase 242 U/L (46-116); Anion Gap 9 (7-16); Aspartate Amino Transferase 101 U/L (0-34); BUN/Creatinine Ratio 8 Ratio (12-20); Bilirubin,Total 0.2 mg/dL (0.3-1.2); Blood Urea Nitrogen 10 mg/dL (9-23); Calcium 9.4 mg/dL (8.3-10.6); Calcium (Corrected) 9.6 mg/dL (8.5-10.1); Carbon Dioxide 22.1 mMol/L (20.0-31.0); Chloride 104 mMol/L (98-107); Creatinine (Component) 1.2 mg/dL (0.6-1.3); Estimated Creatinine Clearance 60.7 mL/min (>60); Globulin 2.7 gm/dL (2.3-3.5); Glucose 351 mg/dL (74-106); Osmolality,Calculated 283 (275-295); Potassium 4.0 mMol/L (3.4-5.1); Sodium 135 mMol/L (136-145); Total Protein 6.4 gm/dL (5.7-8.2); eGFR 56 See Note
--- NOTE | 2025-03-11 08:39 | EDNOTE_ITS ---
Emergency Room Addendum Addendum Narrative: I assumed from oncoming provider. Patient is hemodynamically stable, not in distress. Will restart patient's home medications. We are pending transfer for management of septic knee requiring revision of hardware given concern for infected hardware. Transfer center has reached out to multiple facilities, declined by [facility], states that this can be managed as an outpatient, he states that also recommended an inpatient ID consult, also recommends that patient go back to the facility where she was operated on in have a different surgeon other than her surgeon since her surgeon is no longer available to perform the washout and replacement of an antibiotic spacer. [place] declined due to capacity. [facility] declined secondary to recommendation that the patient needs a specialist with higher level of care than their capabilities. We are pending a callback from [facility]. We have placed a consult to infectious disease, have patient on broad-spectrum antibiotics. Today's labs with downtrending leukocytosis currently 15.7 previously in the 20s. No significant metabolic disturbance. CT of the right knee shows a complex-knee effusion. Radiology recommended possible fluoroscopic drainage. 8:45a call Dr. Wang, left HIPAA compliant message. Will place an IR order for drainage of this complex knee effusion and wound culture. Attempted to consult infectious disease specialist Dr. Cesar, however states he does not take call for the emergency department and as such is not able to see the patient. However he states that in the past patients with infected joints and hardware have been discharged as long as they have an orthopedic surgeon and as an outpatient to perform their surgery. Recommends that if patient is can to be discharged once a surgeon that is able to take care of the patient as an outpatient, that she be discharged on 1000 mg of cephalexin 3 times daily until she is seen by her surgeon and the surgeon can determine what antibiotics to continue her on. Transfer note spoke with [facility], and they state that the patient in the past was seen, and was made appointments. Will attempt to establish care with therapist again as we continue to look for transfer.
--- NOTE | 2025-03-11 08:46 | PC.CM ---
Addendum entered by Nette Gan RN 03/11/25 18:50: 1830 [facility] called earlier today and I spoke to Maryse. She was unable to give me an appointment date at this time. She states patient will more than likely will need to follow up with her PCP to get a referral. I let Maryse know that my doctor would like to speak to Dr. Julian. Maryse states she will try to reach out to Dr. Julian but she cannot guarantee he will call Dr. Nguyen. I updated Dr. Nguyen. Patient does not need a higher level transfer. Addendum entered by Nette Gan RN 03/11/25 17:41: 1630 I received a call back from Maryse with [facility] in [place] [phone]. She states Dr. Julian does not want to see patient at his clinic because she has not been seen since 2021. I let Maryse know patient could be seen by another doctor. I let her know my Dr. Nguyen does not want to discharge patient without a follow up date. Maryse states patient will more than likely will need to follow up with her PCP to get a referral. I let Maryse know that my doctor would like to speak to Dr. Julian. Maryse states she will try to reach out to Dr. Julian but she cannot guarantee he will call Dr. Nguyen. I updated Dr. Nguyen. Addendum entered by Nette Gan RN 03/11/25 15:11: 1430 I reached out to [facility] in [place] and I left a message for [employer] phone # [phone].. I asked that she call me back and give me an appointment date with a doctor so we could discharge patient out of the hospital. Addendum entered by Nette Gan RN 03/11/25 11:12: 1000 I called [facility] in [place] phone # [phone]. I spoke to Karina and she states they do have patient in their system. Karina states patient had surgery on her right Knee on Apr 052021 with Dr. Ricky Julian. Patient was seen on 2021 for a follow up. I let Karina know that patient is currently in our ED with septic R. Knee. I asked if I could make a follow up appointment. Karina states patient had so many missed appointment that she would have to ask the doctor is he is wiling to accept for follow up. She stated if Dr. Rawls does not accept, she could scheduled with another doctor, Karina states she will get back to me. Original Note: 854 I received a call from Dr. Nguyen and she states she spoke to Dr. Cesar and he states patient can be followed up at outpatient and she can be discharged with PO abx. Dr. Nguyen asked if we can get patient an outpatient appointment with a clinic preferably with [facility] where she had the surgery in the past 799I reviewed notes and I see patient is still needing transfer for septic knee. Apparently patient had a previous surgery with Dr. Marc at [facility]. I spoke to Dr. Nguyen this morning and I gave her the update on status of transfer. -[facility]-declined and they do not have Dr. Marc working at their hospital. -[facility]-declined due to capacity. - -[facility]-declined stating they do not offer the services needed -[facility] declined stating patient does NOT need high level transfer and could follow up as outpatient at a closer facility -[facility] declined stating patient does NOT need an acute transfer and can follow up as outpatient. -[facility]-declined I spoke to Valery with the transfer center and she states Dr. Zepeda reviewed patient on 03/09 and he declined patient.
[2025-03-11] MEDS: VANCOMYCIN/WATER 1250 MG IVPB 250 ML 120 MG IV (09:19)
[2025-03-11] MEDS: INSULIN HUM REGULAR 1 UNIT/0.01 ML (PER UNIT) 5 UNIT SC (13:25)
[2025-03-11] MEDS: ATORVASTATIN CALCIUM 10 MG TABLET PO (13:26)
[2025-03-11] MEDS: LOSARTAN POTASSIUM 25 MG TABLET 100 MG PO (13:26)
[2025-03-11] MEDS: LIDOCAINE INJ PF 1% 30 ML VIAL 25 ML INFL (14:42)
[2025-03-11] MEDS: FAMOTIDINE 20 MG TABLET 40 MG PO (16:51)
--- NOTE | 2025-03-11 18:43 | PD.EDADDENDU ---
Emergency Room Addendum Addendum Narrative: 1800: Care assumed from Dr. Nguyen, the previous shift emergency physician. Past medical, surgical, social and family history reviewed. Vitals and home medications reviewed. Results and treatment plan discussed. I will assume the care of the patient at this time and will follow the patient. Please refer to the emergency department record for history and examination from initial visit. 45yo female diagnosed with septic arthritis, on antibiotic therapy based on previous culture results, improving clinically, who underwent formal IR directed aspiration of the right knee joint 1 day ago, which based upon cell count analysis is without septic arthritis. ?inflammatory process. There is slightly limited ROM and flexion and the knee itself is not erythematous nor is induration present. There is slight warmth and distal function is intact. Peripheral counts are markedly improved, patient is nontoxic in appearance, and after lengthy discussion with the patient, she will go directly to [facility] with data accumulated from current stay for her orthopedic surgeon to make specific recommendation. Precaution instructions issued.
[2025-03-11] MEDS: DiphenhydrAMINE ELIX 25 MG/10 ML UDC 50 MG PO (19:32)
[2025-03-11] MEDS: VANCOMYCIN/WATER 1GM IVPB 200 ML IV (22:36)
[2025-03-12 01:27] VITALS: BP 151/102; PULSE 115; RESP 19; TEMP 37.2; O2SAT 93
[2025-03-12] MEDS: MORPHINE SULF INJ 10 MG/ML VIAL 4 MG IVP ×2 (01:49→06:43)
[2025-03-12 04:48] VITALS: BP 148/104; PULSE 88; RESP 14; TEMP 37; O2SAT 95
[2025-03-12 05:08] VITALS: BP 148/110; PULSE 98; RESP 18; TEMP 36.8; O2SAT 93
[2025-03-12 06:51] VITALS: BP 145/100; PULSE 75; RESP 14; TEMP 37; O2SAT 99
--- NOTE | 2025-03-12 07:55 | PC.CM ---
I reviewed doctors notes and I see patient will be discharged home today. Patient was told to follow up with [facility] after discharge.
[2025-03-12 08:21] LABS: Misc Send Out* See Sep Rpt
[2025-03-12 10:40] LABS: Source,Synovial Fluid RT KNEE; Synovial Fluid Appearance Cloudy; Synovial Fluid Color Straw; Synovial Fluid Mononuclear 14.0 %; Synovial Fluid Polynuclear 86.0 %; Synovial Fluid RBC 2000 /cmm; Synovial Fluid WBC 64910 /cmm
[2025-03-17 07:10] LABS: Insulin* 13.6 uIU/mL (< OR = 18.4)
== END 2025-03-12 06:52 | disposition home or self-care (01) ==
PROVIDERS: Emergency Medicine; Nurse Practitioner Family; Physician Assistant Medical; Emergency Provider Emergency Medicine; PCP Physician Assistant
DX: M00.861 Arthritis due to other bacteria, right knee (principal); F15.10 Other stimulant abuse, uncomplicated; E11.9 Type 2 diabetes mellitus without complications; I10 Essential (primary) hypertension
CPT/HCPCS: 20610; 36415; 73562; 73701; 75989; 80053; 80202; 80307; 81001; 82550; 82945; 83525; 83605; 84145; 84550; 84560; 85025; 85652; 86140; 87040; 87070; 87075; 87086; 87205; 87400; 87811; 89051; 93971; 96365; 96366; 96372; 96375; 96376; 99284; A4649; J0689; J1815; J1885; J2270; J2405; J2543; J3372; J3373; J3375; J3490; J7030; J7050; Q9967; A9270

== ENCOUNTER → 2025-03-25 | Outpatient (CLI) | payer OTHER, MEDICAID, SELFPAY ==
--- NOTE | 2025-03-25 16:30 | XR_ITS ---
Examination: Abdomen sonogram, complete Date and time of exam: March 25, 2025, 1640 hrs. Indications: Abnormal liver function tests on examination March 11, 2025, generalized body pain one month.. Technique: Multiple real-time grayscale transabdominal sonographic images of the abdomen have been obtained. Findings: Contracted gallbladder, no gallstones, normal gallbladder wall. Common bile duct enlarged 0.6 cm only partly visualized. Pancreatic head 2.0 cm. Aorta obscured by bowel. Liver 19.5 cm irregular contour fatty infiltration. Normal hepatopedal portal venous flow. Patent IVC. Right kidney 9.6 cm renal cortex 1.1 cm Left kidney 9.9 cm cortex 1.0 cm. 5 mm midpole nonobstructing left renal calculus. Absent spleen. Impression: Abnormally enlarged common bile duct with 6 cm, consider MRCP follow-up to exclude common bile stones and/or stricture Hepatomegaly, fatty infiltration throughout the liver, primary hepatocellular disease versus cirrhosis 5 mm nonobstructing left renal calculus.
--- NOTE | 2025-03-25 16:30 | XR_ITS ---
Examination: Pelvic ultrasound, transabdominal, complete Technique: Transabdominal ultrasound of the pelvis performed using grayscale imaging Date and time of exam: March 25, 2025, 1655 hrs. Indications: Renal insufficiency on laboratory examination March 11, 2025. Pelvic pain this week Findings: Uterus 6.8 cm endometrial stripe 1.4 cm No uterine mass Right ovary 2.7 cm arterial flow. Left ovary 2.8 cm arterial flow Impression: No uterine or adnexal mass.
== END | disposition home or self-care (01) ==
PROVIDERS: PCP Nurse Practitioner Family; Referring Provider Nurse Practitioner Family; Visit Provider Nurse Practitioner Family
DX: K83.8 Other specified diseases of biliary tract (principal); K76.0 Fatty (change of) liver, not elsewhere classified; N20.0 Calculus of kidney
CPT/HCPCS: 76700; 76856

== ENCOUNTER → 2025-03-26 | Outpatient (CLI) | payer OTHER, MEDICAID, SELFPAY ==
--- NOTE | 2025-03-26 10:21 | XR_ITS ---
Examination: Foot, left, 3 views Technique: AP, oblique, lateral views foot, 3 views Date and time of exam: March 26, 2025 1044 hours INDICATIONS: Left foot swelling beginning one month ago. 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
--- NOTE | 2025-03-26 10:21 | XR_ITS ---
Examination: PA lateral chest 2 views TECHNIQUE: Upright PA lateral chest 2 views Date and time: March 26, 2025 1050 hours, comparison February 13, 2022 INDICATIONS: Clinical diagnosis coccidiomycosis, coughing shortness of breath 2 weeks. FINDINGS: Normal heart size. The lungs are clear. Moderate osteopenia IMPRESSION: No active disease
== END | disposition home or self-care (01) ==
LOC: CDIM 10:00
PROVIDERS: PCP Nurse Practitioner Family; Referring Provider Nurse Practitioner Family; Visit Provider Nurse Practitioner Family
DX: R05.3 Chronic cough (principal); M19.072 Primary osteoarthritis, left ankle and foot; Z98.890 Other specified postprocedural states
CPT/HCPCS: 71046; 73630

== ENCOUNTER 2025-06-09 16:21 | Emergency (ER) | payer OTHER, MEDICAID, SELFPAY ==
[2025-06-09 16:22] VITALS: BP 146/87; PULSE 113; PULSE 78; RESP 19; TEMP 37.1; O2SAT 96; O2SAT 98; BMI 31.3
[2025-06-09 16:23] VITALS: BMI 35.6
--- NOTE | 2025-06-09 17:03 | XR_ITS ---
EXAMINATION: PA lateral chest 2 views TECHNIQUE: Upright PA lateral chest 2 views Date and time: June 09, 2025, 1712 hours, comparison 03/26/2025 INDICATIONS: Coughing and chest pain headache fever this month FINDINGS: Suspicious for early mild infiltrate in the left lung Normal heart size Osseous structures are intact IMPRESSION: Suspicious for early mild pneumonia in the left lung
--- NOTE | 2025-06-09 17:04 | PD.EDRME ---
Rapid Medical Screening Exam RME Arrival date/time: 06/09/25 16:21 45-year-old female with a history of hypertension presents to the emergency room with a chief complaint of weakness, chills, fever x 1 month I have greeted and performed a focused initial assessment of this patient. A comprehensive ED assessment and evaluation of the patient, analysis of all test results, and completion of the medical decision making process will be conducted by additional ED providers. Chief Complaint: Headache Time Seen by Provider: 06/09/25 17:00 Vital signs: Vital Signs Temperature 98.8 F 06/09/25 16:22 Pulse Rate 113 H 06/09/25 16:22 Respiratory Rate 19 06/09/25 16:22 Blood Pressure 146/87 H 06/09/25 16:22 Pulse Oximetry (%) 98 06/09/25 16:22 Oxygen Delivery Method Room Air 06/09/25 16:22 Vital signs reviewed by provider: Yes Exam: Clear bilateral lung sounds Strong and regular rhythm Clinical Impression: UTI/COVID-19/influenza/community-acquired pneumonia
[2025-06-09 17:31] LABS: Lactate (Lactic Acid) 2.1 mMol/L (0.4-2.0)
[2025-06-09 17:44] LABS: Basophils # (Auto) 0.1 Thou/mm3 (0.0-0.2); Basophils % (Auto) 3 % (0-2.5); Eosinophils # (Auto) 0.2 Thou/mm3 (0.0-0.5); Eosinophils % (Auto) 3 % (0-10); Hematocrit 46.8 % (36.0-46.0); Hemoglobin 15.1 g/dL (12.0-16.0); Immature Granulocytes Auto 0.02 Thou/mm3 (0.00-0.00); Lymphocytes # (Auto) 1.6 Thou/mm3 (1.0-4.8); Lymphocytes % (Auto) 32 % (10-50); Mean Corpuscular HGB Conc 32.3 g/dl (31.0-37.0); Mean Corpuscular Hemoglobin 30.0 pg (25.0-35.0); Mean Corpuscular Volume 93 fL (80-100); Monocytes # (Auto) 0.5 Thou/mm3 (0.0-0.8); Monocytes % (Auto) 10 % (0-12); Neutrophils # (Auto) 2.6 Thou/mm3 (1.8-7.7); Neutrophils % (Auto) 52 % (37-80); Nucleated Red Blood Cell # 0.00 Thou/mm3 (0.00-0.00); Nucleated Red Blood Cell % 0 /100 WBC (0); Platelet Count 188 Thou/mm3 (140-440); RDW Standard Deviation 53.7 fL (36.4-46.3); Red Blood Count 5.03 Miln/mm3 (4.00-5.20); White Blood Count 4.9 Thou/mm3 (3.6-11.0)
[2025-06-09 17:51] LABS: Influenza A Ag Negative; Influenza B Ag Negative; Strep A Rapid Negative (Negative)
[2025-06-09 17:52] LABS: COVID-19 Antigen (In-House) Negative (Negative)
[2025-06-09 18:13] LABS: Alanine Aminotransferase 327 U/L (10-49); Albumin, Serum 4.8 gm/dL (3.5-5.0); Albumin/Globulin Ratio 1.7 (1.2-2.2); Alkaline Phosphatase 218 U/L (46-116); Anion Gap 13 (7-16); Aspartate Amino Transferase 461 U/L (0-34); BUN/Creatinine Ratio 11 Ratio (12-20); Bilirubin,Total 0.2 mg/dL (0.3-1.2); Blood Urea Nitrogen 15 mg/dL (9-23); Calcium 9.9 mg/dL (8.3-10.6); Calcium (Corrected) 9.9 mg/dL (8.5-10.1); Carbon Dioxide 23.6 mMol/L (20.0-31.0); Chloride 105 mMol/L (98-107); Creatinine (Component) 1.4 mg/dL (0.6-1.3); Estimated Creatinine Clearance 51.3 mL/min (>60); Globulin 2.9 gm/dL (2.3-3.5); Glucose 141 mg/dL (74-106); Osmolality,Calculated 285 (275-295); Potassium 5.0 mMol/L (3.4-5.1); Procalcitonin 0.24 ng/ml (0.0-0.49); Sodium 142 mMol/L (136-145); Total Protein 7.7 gm/dL (5.7-8.2); eGFR 47 See Note
[2025-06-09] MEDS: KETOROLAC INJ 30 MG/ML VIAL 15 MG IM (19:35)
[2025-06-09 19:54] LABS: Collection Type, Urine Clean Catch
[2025-06-09 20:07] LABS: Bilirubin,Urine Negative (Negative); Blood,Urine 2+ (Negative); Clarity,Urine Clear (Clear/Hazy); Color,Urine Lt-Yellow (Lt Yel-Yel); Glucose, Urine 3+ (Negative); Hyaline Casts,Urine < 1 /hpf (0-1); Ketones,Urine Negative (Negative); Leukocyte Esterase,Urine Negative (Negative); Nitrite,Urine Negative (Negative); PH,Urine 6.0 (5.0-7.0); Protein,Urine 2+ (Neg - Trace); RBC,Urine 11 /hpf (0-3); Specific Gravity,Urine 1.016 (1.001-1.035); Squamous Epithelial Cell,Urine 1 /hpf (0-5); Urobilinogen,Urine Negative mg/dL (0.0-1.0); WBC,Urine 1 /hpf (0-5)
[2025-06-09 20:28] LABS: Reflex Lactate? Y
--- NOTE | 2025-06-09 20:56 | PC.NURSE ---
LAB STAFF CALLED PATIENT IN THE LOBBY AND OUTSIDE, NO ANSWER RECIEVED.
--- NOTE | 2025-06-09 21:07 | PC.NURSE ---
CALLED PATIENT IN THE LOBBY AND OUTSIDE, NO ANSWER RECEIVED.
--- NOTE | 2025-06-09 21:26 | PC.NURSE ---
CALLED PATIENT IN THE LOBBY AND OUTSIDE, NO ANSWER RECEIVED.
== END 2025-06-09 21:26 | disposition left against medical advice (07) ==
PROVIDERS: Nurse Practitioner Family; Emergency Provider Emergency Medicine; PCP Nurse Practitioner Family
DX: U07.1 COVID-19 (principal); N39.0 Urinary tract infection, site not specified; J12.82 Pneumonia due to coronavirus disease 2019; J11.1 Influenza due to unidentified influenza virus with other respiratory manifestations; Z53.29 Procedure and treatment not carried out because of patient's decision for other reasons
CPT/HCPCS: 36415; 71046; 80053; 81001; 83605; 84145; 85025; 87040; 87086; 87502; 87651; 87811; 96372; 99283; J1885

== ENCOUNTER 2025-07-01 10:09 | Emergency (ER) | payer BC, MEDICAID, SELFPAY ==
[2025-07-01 10:20] VITALS: BP 132/92; PULSE 72; PULSE 97; RESP 18; TEMP 36.9; O2SAT 95; O2SAT 98
--- NOTE | 2025-07-01 10:54 | XR_ITS ---
Examination: CT brain head without contrast. 2-D sagittal coronal reconstructions Date and time of exam: June, 1502 hours, comparison August 08, 2011 INDICATIONS: Generalized headache today CTDI: vol (mGy): 48.7 DLP: (mGycm): 1003 Technique: Multiple CT axial sections of the brain have been obtained, 5 mm slice thickness. Contrast has not been administered. 2-D sagittal, coronal reconstructions have been obtained Low dose protocols were performed. One or more of the following dose reduction techniques were used; automated exposure control, adjustment of the mA and/or KV according to patient size, use of iterative reconstruction technique. Findings: No significant ventricular enlargement. Intra-axial or extra-axial hemorrhage density is not seen. No mass effect or midline shift Basal cisterns are not remarkable. Fourth ventricle is midline. Cranial vault intact. Impression: Negative for acute hemorrhage, mass effect or midline shift Advise clinical correlation and follow-up accordingly
--- NOTE | 2025-07-01 14:10 | PC.NURSE ---
PT KEPT TRYING TO INTERRUPT THIS NURSE WHILE TRIAGING A PT. PT GOT UPSET AND WENT OUTSIDE. AFTER TRIAGING A PT THIS NURSE WENT OUTSIDE TO FIND PT AND DID NOT SEE HER.
--- NOTE | 2025-07-01 15:35 | EDNOTE_ITS ---
<Statement entered by Casi Day MD - 07/16/25 07:22> As co-signing physician, I was present and available for consult prn. I concur with the plan and care as documented by the midlevel provider. ED Headache RME/HPI General Chief Complaint: Headache Stated Complaint: HEADACHE Time Seen by Provider: 07/01/25 10:22 Arrival date/time: 07/01/25 10:09 45-year-old female presents to the emergency department for complaints of headache intermittently for last couple of months patient ports no chest pain shortness of breath dizziness or weakness. Limitations: no limitations Related Data Home Medications ?Medication ?Instructions ?Recorded ?Confirmed amlodipine 2.5 mg tablet 2.5 mg PO QDAY 02/14/2202/13 metformin 500 mg tablet 500 mg PO BIDWM 02/14/22 apixaban 2.5 mg tablet (Eliquis) 2.5 mg PO BID 2 02/27/22 hydrocodone 7.5 mg-acetaminophen 1 tab PO Q6HR PRN Fatmata n 02/27/22 02/27/22 325 mg tablet amlodipine 5 mg tablet 5 mg PO QDAY 03/11/25 atorvastatin 10 mg tablet 10 mg PO QAM 03/11/25 empagliflozin 10 mg tablet 10 mg PO QAM 03/11/2503/11 (Jardiance) insulin glargine 100 unit/mL (3 20 unit subcut HS 02/1403/11/25 mL) subcutaneous pen (Lantus Solostar U-100 Insulin) lidocaine 5 % topical patch 1 patch topical Q24H 03/1103/11/25 losartan 100 mg tablet 100 mg PO QAM 03/11/2503/11 Previous Rx's ?Medication ?Instructions ?Recorded pantoprazole 40 mg tablet,delayed 40 mg PO QDAY #20 ta bs 09/01/21 release hydrocodone 5 mg-acetaminophen 325 1 tab PO TID PRN pa in #20 tabs 03/12/25 mg tablet acetaminophen-caffeine 500 mg-65 1 tab PO Q6H PRN pain #30 tabs 07/01/25 mg tablet (Excedrin Tension Headache) ibuprofen 800 mg tablet 800 mg PO TID PRN pain #30 t abs 07/01/25 Allergies Allergy/AdvReac Type Severity Reaction Status Date / Time No Known Allergies Allergy Verified 07/01/25 10:20 Review of Systems Review of Systems Systems Reviewed: All systems reviewed, normal except as documented Constitutional Constitutional: Reports system reviewed and no additional complaints, except as documented, Denies fever(s) and Reports headache(s) Eyes Eyes: Reports system reviewed and no additional complaints, except as documented and Denies blurry vision ENT Ears, Nose, Mouth, and Throat: Reports system reviewed and no additional complaints, except as documented, Reports headache(s), Denies nasal congestion and Denies nasal discharge Cardiovascular Cardiovascular: Reports system reviewed and no additional complaints, except as documented, Denies chest pain and Denies dyspnea Respiratory Respiratory: Reports system reviewed and no additional complaints, except as documented, Denies chest congestion, Denies cough and Denies dyspnea Gastrointestinal Gastrointestinal: Reports system reviewed and no additional complaints, except as documented and Denies abdominal pain Integumentary/Breasts Skin/Breast: Reports system reviewed and no additional complaints, except as documented and Denies rash Neurologic Neurologic: Reports system reviewed and no additional complaints, except as documented, Reports as per HPI and Reports headache(s) Past Medical History Past Medical History CARDIAC: Positive Hypertension; Negative Cardiac Disorders or Congestive Heart Failure RESPIRATORY: Negative Chronic Obstructive Pulmonary Disease (COPD) or Asthma GASTROINTESTINAL: Positive Pancreatitis GENITOURINARY: Negative Renal Disease ENDOCRINE: Positive Diabetes Mellitus Type 2; Negative Diabetes Mellitus Type 1 HEMATOLOGIC: Negative Sickle Cell Disease OTHER HISTORY: Positive Blood Transfusions Surgical History SURGICAL: Positive Tubal Ligation Social History SMOKING STATUS: Current every day smoker ED Exam General Limitations: Present no limitations General appearance: Present alert and in no apparent distress Head Head exam: Present atraumatic, normocephalic and normal inspection Eye Eye exam: Present normal appearance, PERRL and EOMI ENT ENT exam: Present normal exam, normal oropharynx and mucous membranes moist Neck Neck exam: Present normal inspection, full ROM and trachea midline Chest Chest inspection: Present normal inspection and symmetric chest wall rise Respiratory Respiratory exam: Present normal lung sounds bilaterally Cardiovascular Cardiovascular exam: Present regular rate, normal rhythm and normal heart sounds Abdominal Exam Abdominal exam: Present soft and normal bowel sounds Extremities Exam Extremities exam: Present normal inspection and full ROM Back Exam Back exam: Present normal inspection and full ROM Neurological Exam Neurological exam: Present alert, oriented X3, CN II-XII intact, normal gait, reflexes normal and other (Normal); Absent motor sensory deficit Psychiatric Psychiatric exam: Present normal affect and normal mood Skin Skin exam: Present warm, dry, intact and normal color Course Quality Measures none Orders Category Date Time Status CT head/brain wo con Stat Exams 07/01/25 10:54 Completed Vital Signs Vital signs: Vital Signs Temperature 98.4 F 07/01/25 10:20 Pulse Rate 97 07/01/25 10:20 Respiratory Rate 18 07/01/25 10:20 Blood Pressure 132/92 H 07/01/25 10:20 Pulse Oximetry (%) 95 07/01/25 10:20 Oxygen Delivery Method Room Air 07/01/25 10:20 O2 saturation 95% room air with normal limits Headache MDM Narrative MDM Narrative:: 45-year-old female presents to the emergency department for complaints of headache intermittently for last couple of months patient ports no chest pain shortness of breath dizziness or weakness. Clinically patient well-appearing does not appear look toxic Patient has no abnormal neurological findings CT scan of the head obtained no acute emergent findings noted Patient discharged home in no distress to follow-up with primary care doctor in the next 24 to 48 hours and for any worsening symptoms to return to the ER immediately Patient data External records reviewed:: [facility] previous records Clinical information provided by:: patient Social determinants that could affect healthcare access:: none Patient has the following chronic illnesses:: See history How is presenting disease/condition affected by chronic disease/condition?: exacerbated by Evaluation data The following diagnostics were reviewed and interpreted by me:: radiology exam(s) Lab and/or radiology exams considered but not ordered:: Radiology obtain Interpretation Summary: Reviewed by me Medications / Prescriptions Medications or Prescriptions considered but not ordered:: Given Medication administrations:: Given Consultations Consultation(s) initiated? (list below): No Diagnosis Differential diagnosis headache: migraine, tension headache and subarachnoid hemorrhage Most likely diagnosis given after review of the tests above:: Headache Admission Indicated Admission indicated?: not indicated Admission Request Was there a request for admission?: No Disposition Plan Disposition Plan: Discharge Discharge Attestation Discharge Attestation: The patient and all family members were given an opportunity to ask questions and understood the discharge instructions. Discharge instructions specifically effects, indications for sooner follow up or return to the emergency department, and the expected course of current diagnosis. Patient condition: Stable Discharge Plan Plan Patient Disposition: HOME (Self Care) Discharge Disposition comment: Stable Prescriptions/Referrals Prescriptions/Med Rec: New Excedrin Tension Headache 500-65 mg tablet 1 tab PO Q6H PRN (Reason: pain) Qty: 30 0RF ibuprofen 800 mg tablet 800 mg PO TID PRN (Reason: pain) Qty: 30 0RF No Action pantoprazole 40 mg Tablet,Delayed Release (Dr/Ec) 40 mg PO QDAY Qty: 20 0RF metformin 500 mg tablet 500 mg PO BIDWM Patient Comments: TAKE 1 TABLET BY MOUTH TWICE A DAY WITH MORNING AND EVENING MEALS amlodipine 2.5 mg tablet 2.5 mg PO QDAY Patient Comments: TAKE 1 TABLET BY MOUTH EVERY DAY hydrocodone-acetaminophen 7.5-325 mg tablet 1 tab PO Q6HR PRN (Reason: Pain) Patient Comments: TAKE 1 TABLET BY MOUTH EVERY 6 HOURS FOR 5 DAYS Eliquis 2.5 mg tablet 2.5 mg PO BID Patient Comments: TAKE 1 TABLET BY MOUTH TWICE DAILY FOR 21 DAYS amlodipine 5 mg tablet 5 mg PO QDAY Patient Comments: TAKE 1 TABLET BY MOUTH EVERY DAY losartan 100 mg tablet 100 mg PO QAM Patient Comments: TAKE 1 TABLET BY MOUTH EVERY DAY Jardiance 10 mg tablet 10 mg PO QAM insulin glargine [Lantus Solostar U-100 Insulin] 100 unit/mL (3 mL) insulin pen 20 unit SUBCUT HS Patient Comments: INJECT 20 UNITS BY SUBCUTANEOUS ROUTE ONCE EVERY BED TIME. lidocaine 5 % adhesive patch,medicated 1 patch TOPICAL Q24H Patient Comments: APPLY 1 PATCH EVERY DAY MAY WEAR UP TO 12 HOURS atorvastatin 10 mg tablet 10 mg PO QAM Patient Comments: TAKE 1 TABLET BY MOUTH EVERY DAY hydrocodone-acetaminophen 5-325 mg tablet 1 tab PO TID MDD 3 tab PRN (Reason: pain) Qty: 20 0RF Referrals: Fernanda Klein PA-C ([facility]) [Primary Care Provider] - In 1 week Problem List Clinical Impression: Headache Patient/Caregiver Discharge Instructions Education Materials: Self-Care for Headaches Additional Instructions: Please follow up with your primary care doctor in the next 24-48hrs for any worsening symptoms return here immediately Print Language: Telugu Stand Alone Forms: [employer] Award Info., Patient Portal Info Letter PA/PARADI TENDER Supervising Physician PA/MARCUS Supervising Physician: Dr. day
== END 2025-07-01 16:22 | disposition home or self-care (01) ==
PROVIDERS: Emergency Provider Emergency Medicine; PCP Nurse Practitioner Family
DX: R51.9 Headache, unspecified (principal)
CPT/HCPCS: 70450; 99282

== ENCOUNTER 2025-07-05 04:12 | Emergency (ER) | payer BC, MEDICAID, SELFPAY ==
[2025-07-05 04:12] VITALS: BMI 37.5
[2025-07-05 04:20] VITALS: BP 133/81; PULSE 116; RESP 18; TEMP 36.9; O2SAT 96
--- NOTE | 2025-07-05 04:25 | XR_ITS ---
EXAMINATION: Left wrist 2 views TECHNIQUE: AP lateral left wrist 2 views Date and time: July 05, 2025, 0457 hours INDICATIONS: Patient fell today with injury to the wrist, wrist pain. FINDINGS: Old fracture deformity distal radial metaphysis Prominent osteopenia. No acute fracture No dislocation IMPRESSION: No acute fracture
[2025-07-05] MEDS: MORPHINE SULF INJ 4 MG/ML VIAL IM (04:40)
--- NOTE | 2025-07-05 05:15 | PD.EDHAND ---
Upper Extremity Injury RME/HPI General Chief Complaint: Extremity Injury, Upper Stated Complaint: LEFT WRIST INJURY Time Seen by Provider: 07/05/25 04:25 Arrival date/time: 07/05/25 04:12 This is a case of 45-year-old female with history of hypertension and broken wrist in the past came in in the emergency room due to left wrist injury history of present illness started today when the patient was walking accidentally fell and landed on his left wrist causing her left wrist to hyperextend due to worsening of the pain and swelling thus patient decided to sought consult here in the emergency room denies any head neck chest or abdominal injury no loss of consciousness Limitations: no limitations Related Data Home Medications ?Medication ?Instructions ?Recorded ?Confirmed amlodipine 2.5 mg tablet 2.5 mg PO QDAY 02/14/22 02/27/22 metformin 500 mg tablet 500 mg PO BIDWM 02/14/22 02/27/22 apixaban 2.5 mg tablet (Eliquis) 2.5 mg PO BID 02/27/22 02/27/22 hydrocodone 7.5 mg-acetaminophen 1 tab PO Q6HR PRN Pain 02/27/22 02/27/22 325 mg tablet amlodipine 5 mg tablet 5 mg PO QDAY 03/11/25 03/11/25 atorvastatin 10 mg tablet 10 mg PO QAM 03/11/25 03/11/25 empagliflozin 10 mg tablet 10 mg PO QAM 03/11/25 03/11/25 (Jardiance) insulin glargine 100 unit/mL (3 20 unit subcut HS 03/11/25 03/11/25 mL) subcutaneous pen (Lantus Solostar U-100 Insulin) lidocaine 5 % topical patch 1 patch topical Q24H 03/11/25 03/11/25 losartan 100 mg tablet 100 mg PO QAM 03/11/25 03/11/25 Previous Rx's ?Medication ?Instructions ?Recorded pantoprazole 40 mg tablet,delayed 40 mg PO QDAY #20 tabs 09/01/21 release hydrocodone 5 mg-acetaminophen 325 1 tab PO TID PRN pain #20 tabs 03/12/25 mg tablet acetaminophen-caffeine 500 mg-65 1 tab PO Q6H PRN pain #30 tabs 07/01/25 mg tablet (Excedrin Tension Headache) ibuprofen 800 mg tablet 800 mg PO TID PRN pain #30 tabs 07/01/25 hydrocodone 5 mg-acetaminophen 325 1 tab PO Q6H PRN pain #12 tabs 07/05/25 mg tablet ondansetron 4 mg disintegrating 4 mg PO Q8H PRN nausea and 07/18/25 tablet vomiting #12 tabs pantoprazole 40 mg tablet,delayed 40 mg PO QDAY #30 tabs 07/18/25 release (Protonix) Allergies Allergy/AdvReac Type Severity Reaction Status Date / Time No Known Allergies Allergy Verified 08/13/25 12:57 Review of Systems Review of Systems Systems Reviewed: All systems reviewed, normal except as documented Past Medical History Past Medical History CARDIAC: Positive Hypertension; Negative Cardiac Disorders or Congestive Heart Failure RESPIRATORY: Negative Chronic Obstructive Pulmonary Disease (COPD) or Asthma GASTROINTESTINAL: Positive Pancreatitis GENITOURINARY: Negative Renal Disease ENDOCRINE: Positive Diabetes Mellitus Type 2; Negative Diabetes Mellitus Type 1 HEMATOLOGIC: Negative Sickle Cell Disease OTHER HISTORY: Positive Blood Transfusions Surgical History SURGICAL: Positive Tubal Ligation Social History SMOKING STATUS: Heavy (> 1 pack/day) ED Exam General Limitations: Present no limitations General appearance: Present alert and in no apparent distress Head Head exam: Present atraumatic Eye Eye exam: Present normal appearance, PERRL and EOMI ENT ENT exam: Present normal exam, normal oropharynx and mucous membranes moist Neck Neck exam: Present normal inspection, full ROM and trachea midline Chest Chest inspection: Present normal inspection and symmetric chest wall rise Respiratory Respiratory exam: Present normal lung sounds bilaterally Cardiovascular Cardiovascular exam: Present regular rate, normal rhythm and normal heart sounds Abdominal Exam Abdominal exam: Present soft and normal bowel sounds Extremities Exam Extremities exam: Present normal inspection and full ROM Expanded Upper Extremity Exam Elbow exam: Present normal inspection and full ROM; Absent tenderness or swelling Forearm/Wrist exam: Present tenderness, swelling and other (Moderate tenderness on palpation on the left anterior wrist with swelling no crepitation no deformity ROM is limited due to pain pulses were full and equal capillary refill less than 2 seconds sensory is intact); Absent abrasion, laceration, ecchymosis, deformity, crepitus, dislocation, erythema, tenderness over anatomical snuff box or pain with axial thumb loading Hand exam: Present normal inspection and full ROM; Absent tenderness Back Exam Back exam: Present normal inspection and full ROM Neurological Exam Neurological exam: Present alert, oriented X3, CN II-XII intact, normal gait and reflexes normal; Absent motor sensory deficit Psychiatric Psychiatric exam: Present normal affect and normal mood Skin Skin exam: Present warm, dry, intact and normal color Course Quality Measures none Orders Category Date Time Status XR wrist LT 2V Stat Exams 07/05/25 04:25 Completed Ketorolac Inj [Toradol Inj] Med 07/05/25 05:15 Discontinued 30 mg IM X1 ONE Morphine* Inj Med 07/05/25 04:25 Discontinued 4 mg IM X1 ONE Vital Signs Vital signs: Vital Signs Temperature 98.4 F 07/05/25 04:20 Pulse Rate 116 H 07/05/25 04:20 Respiratory Rate 18 07/05/25 04:20 Blood Pressure 133/81 H 07/05/25 04:20 Pulse Oximetry (%) 96 07/05/25 04:20 Oxygen Delivery Method Room Air 07/05/25 04:20 Oxygen saturation is 96% on room air Extremity Injury MDM Narrative MDM Narrative:: This is a case of 45-year-old female with history of hypertension and broken wrist in the past came in in the emergency room due to left wrist injury history of present illness started today when the patient was walking accidentally fell and landed on his left wrist causing her left wrist to hyperextend due to worsening of the pain and swelling thus patient decided to sought consult here in the emergency room denies any head neck chest or abdominal injury no loss of consciousness patient sustained a fracture on the left radius and ulna splint was applied patient tolerated well neurovascular intact patient will follow-up with orthopedic surgeon for further evaluation and treatment for worsening symptoms return to the ER is advised Patient was discharged with comfortable condition walking with stable gait. Patient verbalized no further complains explained diagnosis and answered patient question. Patient is comfortable with the proposed management plan including the need to follow up with his/her primary care physician and any specialist if applicable Discussed patient for any urgent condition or worsening sx, He/She needed to go to emergency room immediately or call 911. Patient acknowledge the responsibility to follow up as instructed and to monitor her/his symptoms. For any persistence of the symptoms for more than 3-5 days return precaution advised. Discussed the result of the test and was given printed discharge instruction Patient data External records reviewed:: [facility] previous records Clinical information provided by:: patient Social determinants that could affect healthcare access:: none Patient has the following chronic illnesses:: none How is presenting disease/condition affected by chronic disease/condition?: no chronic disease Evaluation data The following diagnostics were reviewed and interpreted by me:: radiology exam(s) Lab and/or radiology exams considered but not ordered:: reviewed Interpretation Summary: reviewed Medications / Prescriptions Medications or Prescriptions considered but not ordered:: given Medication administrations:: Medication Administration History Discontinued Medications Ketorolac Tromethamine (Ketorolac Inj 60 Mg/2 Ml Vial) 30 mg IM X1 ONE Stop: 07/05/25 05:16 Last Admin: 07/05/25 05:32 Dose: 30 mg Documented By: OA Morphine Sulfate (Morphine Sulf Inj 4 Mg/Ml Vial) 4 mg IM X1 ONE Stop: 07/05/25 04:26 Last Admin: 07/05/25 04:40 Dose: 4 mg Documented By: OA given Consultations Consultation(s) initiated? (list below): No Diagnosis Upper Extremity Injury Differential Diagnosis: sprain and strain of wrist and Colles' fracture Most likely diagnosis given after review of the tests above:: distal radial and ulna frcature left Admission Indicated Admission indicated?: not indicated Explain why admission is indicated or not indicated:: not indicated Admission Request Was there a request for admission?: No Admission Attestation Admission request attestation: not indicated Disposition Plan Disposition Plan: Discharge Discharge Attestation Discharge Attestation: The patient and all family members were given an opportunity to ask questions and understood the discharge instructions. Discharge instructions specifically effects, indications for sooner follow up or return to the emergency department, and the expected course of current diagnosis. Patient condition: Stable Discharge Plan Plan Patient Disposition: HOME (Self Care) Patient condition on transfer: Stable Prescriptions/Referrals Prescriptions/Med Rec: New hydrocodone-acetaminophen 5-325 mg tablet 1 tab PO Q6H MDD max 4 tabs per day PRN (Reason: pain) Qty: 12 0RF No Action pantoprazole 40 mg Tablet,Delayed Release (Dr/Ec) 40 mg PO QDAY Qty: 20 0RF metformin 500 mg tablet 500 mg PO BIDWM Patient Comments: TAKE 1 TABLET BY MOUTH TWICE A DAY WITH MORNING AND EVENING MEALS amlodipine 2.5 mg tablet 2.5 mg PO QDAY Patient Comments: TAKE 1 TABLET BY MOUTH EVERY DAY hydrocodone-acetaminophen 7.5-325 mg tablet 1 tab PO Q6HR PRN (Reason: Pain) Patient Comments: TAKE 1 TABLET BY MOUTH EVERY 6 HOURS FOR 5 DAYS Eliquis 2.5 mg tablet 2.5 mg PO BID Patient Comments: TAKE 1 TABLET BY MOUTH TWICE DAILY FOR 21 DAYS amlodipine 5 mg tablet 5 mg PO QDAY Patient Comments: TAKE 1 TABLET BY MOUTH EVERY DAY losartan 100 mg tablet 100 mg PO QAM Patient Comments: TAKE 1 TABLET BY MOUTH EVERY DAY Jardiance 10 mg tablet 10 mg PO QAM insulin glargine [Lantus Solostar U-100 Insulin] 100 unit/mL (3 mL) insulin pen 20 unit SUBCUT HS Patient Comments: INJECT 20 UNITS BY SUBCUTANEOUS ROUTE ONCE EVERY BED TIME. lidocaine 5 % adhesive patch,medicated 1 patch TOPICAL Q24H Patient Comments: APPLY 1 PATCH EVERY DAY MAY WEAR UP TO 12 HOURS atorvastatin 10 mg tablet 10 mg PO QAM Patient Comments: TAKE 1 TABLET BY MOUTH EVERY DAY hydrocodone-acetaminophen 5-325 mg tablet 1 tab PO TID MDD 3 tab PRN (Reason: pain) Qty: 20 0RF Excedrin Tension Headache 500-65 mg tablet 1 tab PO Q6H PRN (Reason: pain) Qty: 30 0RF ibuprofen 800 mg tablet 800 mg PO TID PRN (Reason: pain) Qty: 30 0RF pantoprazole [Protonix] 40 mg tablet,delayed release (DR/EC) 40 mg PO QDAY Qty: 30 0RF ondansetron 4 mg tablet,disintegrating 4 mg PO Q8H PRN (Reason: nausea and vomiting) Qty: 12 0RF Rx Instructions: 1-2 tabs PO Q8Hr prn nausea or vomit Referrals: Qamar)Fernanda PA-C [Primary Care Provider] - In 1 week Problem List Clinical Impression: Closed fracture of distal end of left radius with ulna Patient/Caregiver Discharge Instructions Education Materials: Wrist Fracture, ED Forearm Fx Wo Redu, ED RICE, ED Splints and Casts Additional Instructions: It is very important to see an orthopedic surgeon for further evaluation and treatment of your distal radial ulnar fracture follow-up with your primary care physician in 2 days for reevaluation and to be referred to orthopedic surgeon worsening symptoms or any emergent concerns such as numbness weakness tingling sensation return to the emergency room immediately or call 911 ice pack every 2 hours for 20 minutes for 24 hours then alternate with warm compress elevate to decrease swelling keep the splint in place until cleared by your primary care physician Print Language: Portuguese Stand Alone Forms: [employer] Award Info., Patient Portal Info Letter PA/PERSONAL CARE ATTENDANT Supervising Physician PA/PERSONAL CARE ATTENDANT Supervising Physician: Dr. Baer
[2025-07-05] MEDS: KETOROLAC INJ 60 MG/2 ML VIAL 30 MG IM (05:32)
== END 2025-07-05 05:34 | disposition home or self-care (01) ==
PROVIDERS: Emergency Provider Emergency Medicine; PCP Nurse Practitioner Family
DX: S52.502A Unspecified fracture of the lower end of left radius, initial encounter for closed fracture (principal); S52.602A Unspecified fracture of lower end of left ulna, initial encounter for closed fracture; W19.XXXA Unspecified fall, initial encounter; Y93.01 Activity, walking, marching and hiking
CPT/HCPCS: 73100; 96372; 99282; J1885; J2270